=== PATIENT | male | born 1960 | race Caucasian/White ===

== ENCOUNTER 2023-05-13 12:43 | Day surgery (SDC) | payer BC ==
[2023-05-12 10:13] VITALS: BMI 29.9
[2023-05-13] MEDS ORDERED: LACTATED RINGERS 1,000 ML IV ONE (14:02)
[2023-05-13] MEDS ORDERED: LACTATED RINGERS 1,000 ML IV SCH (14:02)
[2023-05-13 14:16] VITALS: PULSE 57; RESP 16; TEMP 98
[2023-05-13] MEDS ORDERED: LIDOCAINE 1% INJ 10MG/ML (20 ML MDV) ONE (15:54)
[2023-05-13] MEDS ORDERED: PROPOFOL 10 MG/ML 20 ML VIAL IV ONE (15:54)
--- NOTE | 2023-05-13 16:11 | P.PCN ---
Date of Procedure: 05/13/23 Procedure(s) Performed: BRIEF HISTORY: Patient is a 62-year-old pleasant white male scheduled for an elective colonoscopy as a part of screening for colon cancer and family history of colon cancer. His mother was diagnosed with colon cancer at age 68 and sister at age 62. PROCEDURE PERFORMED: Colonoscopy with biopsy PREOPERATIVE DIAGNOSIS: Screening for colon cancer and family history of colon cancer. IV sedation per Anesthesia. PROCEDURE: After informed consent was obtained, the patient, was brought into the endoscopy unit. IV sedation was administered by Anesthesia under continuous monitoring. Digital rectal examination was normal. Initially the Olympus CF-160 flexible video colonoscope was then inserted in the rectum, gradually advanced into the cecum without any difficulty. Careful examination was performed as the scope was gradually being withdrawn. Ileocecal valve and the appendiceal orifice were visualized and appeared normal. Prep was excellent. Mucosa of the cecum, ascending colon, normal. In the transverse colon there was a 4 mm sessile polyp removed by cold biopsy. Diffuse scattered diverticulosis noted. Rest of the transverse colon, descending colon, sigmoid colon, and rectum appeared normal. Retroflexion was performed in the rectum and no lesions were seen. The patient tolerated the procedure well. IMPRESSION: 4 mm transverse colon polyp status post cold biopsy Diffuse scattered diverticulosis RECOMMENDATIONS: Findings of this examination were discussed with the patient as well as his family. He was advised to follow with the biopsies results. Recommend repeat colonoscopy in 5 years because of the strong family history of colon cancer
[2023-05-13 16:35] VITALS: BP 120/76
== END 2023-05-13 16:40 | disposition home or self-care (01) ==
LOC: ORWHC2ENDO 12:43
PROVIDERS: ATTEND Internal Medicine Gastroenterology
DX: Z12.11 Encounter for screening for malignant neoplasm of colon (principal); K63.5 Polyp of colon; K57.30 Diverticulosis of large intestine without perforation or abscess without bleeding; Z80.0 Family history of malignant neoplasm of digestive organs
CPT/HCPCS: 88305; 45380; J2001; J2704